=== PATIENT | female | born 1960 | race Caucasian/White ===

== ENCOUNTER 2018-02-14 07:55 | Inpatient (IN) | payer OTHER ==
[~2018-02-14] VITALS: Ht 162.6 cm; Wt 52.9 kg
[~2018-02-14 07:55] MED LIST: ACET325UDC PO; ACETAMINOPHEN500 MG PO; ALBU3IS INH; ALBU90OI61 INH; ALPR.5; ALPR1 PO; AMIO200 PO; AMIT10 PO; AMLO10 PO; ASPI325EC PO; BACL10 PO; BUDE10.22; BUDE10.22 INH; BUME1 PO; BUME2 PO; CARV3.125 PO; CYCL10 PO; Coumadin2 MG PO; DIGO.25 PO; DIGOX250 MCG PO; DIPATR PO; GABA100 PO; HYDHCL25 PO; HYDR-86; HYDR1TAB94 PO; Isosorbide Mono30 MG PO; LIDO5TP TOP; LISI5 PO; MELO7.5 PO; METO50 PO; NYST100P TOP; OMEP20ER PO; OXYC5 PO; PAIN RELIEVER1 EACH PO; POTCHL20ER PO; SERT25 PO; SPIR25 PO; TRAZ100 PO; WARF4 PO
[2018-02-14 08:27] LABS: BASOPHILS ABSOLUTE AUTO 0.03 K/mm3 (0.00-0.23); BASOPHILS PERCENT AUTO 0 % (0-2); EOSINOPHILS ABSOLUTE AUTO 0.02 K/mm3 (0.00-0.68); EOSINOPHILS PERCENT AUTO 0 % (0-6); Hematocrit 33.2 % (33.0-51.0); Hemoglobin 10.8 g/dL (11.5-16.0); IMMATURE GRAN ABSOLUTE AUTO 0.06 K/mm3 (0.00-0.10); IMMATURE GRAN PERCENT AUTO 1 % (0-1); LYMPHOCYTES ABSOLUTE AUTO 1.96 K/mm3 (0.84-5.20); LYMPHOCYTES PERCENT AUTO 20 % (21-46); MONOCYTES ABSOLUTE AUTO 0.39 K/mm3 (0.16-1.47); MONOCYTES PERCENT AUTO 4 % (4-13); Mean Corpuscular HGB 34.5 pg (26.0-34.0); Mean Corpuscular HGB Conc 32.5 g/dL (31.5-36.5); Mean Corpuscular Volume 106 fL (80-100); Mean Platelet Volume 11.8 fL (9.1-12.4); NEUTROPHILS PERCENT AUTO 75 % (41-73); Platelet Count 116 K/mm3 (150-400); RDW Standard Deviation 53.9 fL (35.1-46.3); Red Blood Cell Count 3.13 M/mm3 (3.80-5.20); White Blood Cell Count 9.76 K/mm3 (4.00-11.30)
[2018-02-14 08:40] LABS: Alanine Aminotransfer (ALT/SGP 60 U/L (12-78); Albumin/Globulin Ratio 1.2 (0.8-1.8); Alk Phos 69 U/L (50-136); Anion Gap 11 mmol/L (6-16); Aspartate Aminotrans (AST/SGOT 43 U/L (12-37); Bilirubin, Total 1.2 mg/dL (0.1-1.0); Blood Urea Nitrogen 18 mg/dL (8-24); Bun/Creatinine Ratio 19.9 (12.0-20.0); CO2, Blood 16 mmol/L (21-32); Calcium, Blood 7.7 mg/dL (8.5-10.1); Chloride, Blood 111 mmol/L (98-108); Creatinine, Blood 0.91 mg/dL (0.40-1.00); Globulin, Blood 2.4 g/dL (2.2-4.0); Glomerular Filtration Rate >60 (60-); Glucose, Blood 95 mg/dL (70-99); Potassium, Blood 4.1 mmol/L (3.5-5.5); Sodium, Blood 138 mmol/L (136-145); Total Protein, Blood 5.4 g/dL (6.4-8.2); Troponin I 0.027 ng/mL (0.000-0.040)
[2018-02-14 08:43] LABS: Base Excess Venous -11.1 mmol/L; PCO2 Venous 34.1 mmHg (38-42); PO2 Venous 47.5 mmHg (38-42); pH Blood Venous 7.27 (7.34-7.37)
[2018-02-14 08:52] LABS: Prothrombin Time Results 94.4 Sec (9.7-11.5)
[2018-02-14 08:57] LABS: International Normalized Ratio 10.47
[2018-02-14 09:47] LABS: Digoxin (Lanoxin) 0.49 ug/mL (0.80-2.00)
[2018-02-14 13:57] LABS: Source, Urine Voided
[2018-02-14 14:02] LABS: Blood, Urine 2+ (Neg); Glucose Qualitative, Urine Neg (Neg); Ketones, Urine 1+ (Neg); Leukocyte Esterase, Urine 1+ (Neg); Nitrite, Urine Neg (Neg); Protein, Urine 3+ (Neg); Specific Gravity, Urine 1.025 (1.003-1.022); Urobilinogen, Urine 2+ (Normal)
[2018-02-14 14:13] LABS: Bilirubin, Urine 1+ (Neg)
[2018-02-14 14:14] LABS: Bacteria Many /hpf; Squamous Epithelial Cells Few /hpf (Few)
[2018-02-14 14:16] LABS: U Amphetamine Screen DETECTED; U Barbituate Screen Not Detected; U Benzodiazapine Screen Not Detected; U Buprenorphine Screen Not Detected; U Cannabinoids Screen DETECTED; U Cocaine Screen Not Detected; U Methadone Screen Not Detected; U Methamphetamine Screen DETECTED; U Opiates Screen Not Detected; U Oxycodone Screen Not Detected; U Phencyclidine Screen Not Detected; U Propoxyphene Screen Not Detected
[2018-02-14 14:18] LABS: Appearance, Urine Clear (Clear); Color, Urine Yellow (P-Yellow)
[2018-02-14 14:40] LABS: Troponin I <0.015 ng/mL (0.000-0.040)
[2018-02-14 15:09] LABS: Magnesium, Blood 1.1 mg/dL (1.6-2.4)
[2018-02-15 06:17] LABS: BASOPHILS ABSOLUTE AUTO 0.03 K/mm3 (0.00-0.23); BASOPHILS PERCENT AUTO 0 % (0-2); EOSINOPHILS PERCENT AUTO 0 % (0-6); Hematocrit 39.1 % (33.0-51.0); Hemoglobin 12.5 g/dL (11.5-16.0); IMMATURE GRAN ABSOLUTE AUTO 0.03 K/mm3 (0.00-0.10); IMMATURE GRAN PERCENT AUTO 0 % (0-1); LYMPHOCYTES ABSOLUTE AUTO 2.29 K/mm3 (0.84-5.20); LYMPHOCYTES PERCENT AUTO 21 % (21-46); MONOCYTES ABSOLUTE AUTO 0.76 K/mm3 (0.16-1.47); MONOCYTES PERCENT AUTO 7 % (4-13); Mean Corpuscular HGB 34.6 pg (26.0-34.0); Mean Corpuscular Volume 108 fL (80-100); Mean Platelet Volume 11.9 fL (9.1-12.4); NEUTROPHILS ABSOLUTE AUTO 8.08 K/mm3 (1.96-9.15); NEUTROPHILS PERCENT AUTO 72 % (41-73); NRBC ABSOLUTE 0.07 K/mm3 (0.00-0.02); NRBC Auto 0.6 /100 WBC (0.0-0.2); Platelet Count 112 K/mm3 (150-400); RDW Standard Deviation 55.4 fL (35.1-46.3); Red Blood Cell Count 3.61 M/mm3 (3.80-5.20); White Blood Cell Count 11.19 K/mm3 (4.00-11.30)
[2018-02-15 06:33] LABS: Albumin, Blood 3.2 g/dL (3.4-5.0); Anion Gap 14 mmol/L (6-16); Blood Urea Nitrogen 21 mg/dL (8-24); Bun/Creatinine Ratio 19.1 (12.0-20.0); CO2, Blood 13 mmol/L (21-32); Chloride, Blood 110 mmol/L (98-108); Glomerular Filtration Rate 54 (60-); Glucose, Blood 102 mg/dL (70-99); Magnesium, Blood 1.4 mg/dL (1.6-2.4); Phosphorus, Blood 3.6 mg/dL (2.5-4.9); Potassium, Blood 4.8 mmol/L (3.5-5.5); Sodium, Blood 137 mmol/L (136-145)
[2018-02-15 06:34] LABS: Prothrombin Time Results 69.1 Sec (9.7-11.5)
[2018-02-15 06:56] LABS: International Normalized Ratio 7.52
[2018-02-16 04:07] LABS: Hematocrit 37.9 % (33.0-51.0); Hemoglobin 12.9 g/dL (11.5-16.0); Mean Platelet Volume 11.4 fL (9.1-12.4); NRBC ABSOLUTE 0.05 K/mm3 (0.00-0.02); NRBC Auto 0.5 /100 WBC (0.0-0.2); Platelet Count 158 K/mm3 (150-400); RDW Coefficient Variation 13.4 % (11.7-14.2); RDW Standard Deviation 48.6 fL (35.1-46.3); Red Blood Cell Count 3.79 M/mm3 (3.80-5.20); White Blood Cell Count 9.28 K/mm3 (4.00-11.30)
[2018-02-16 04:25] LABS: International Normalized Ratio 2.6; Prothrombin Time Results 25.4 Sec (9.7-11.5)
[2018-02-16 04:32] LABS: Mean Corpuscular Volume 100 fL (80-100)
[2018-02-16 04:37] LABS: Bun/Creatinine Ratio 18.3 (12.0-20.0); Calcium, Blood 8.5 mg/dL (8.5-10.1); Creatinine, Blood 1.26 mg/dL (0.40-1.00); Magnesium, Blood 1.6 mg/dL (1.6-2.4); Potassium, Blood 4.4 mmol/L (3.5-5.5)
[2018-02-17 05:34] LABS: Hematocrit 38.7 % (33.0-51.0); Hemoglobin 13.3 g/dL (11.5-16.0); Mean Corpuscular HGB 34.3 pg (26.0-34.0); Mean Corpuscular HGB Conc 34.4 g/dL (31.5-36.5); Mean Corpuscular Volume 100 fL (80-100); Mean Platelet Volume 10.4 fL (9.1-12.4); Platelet Count 167 K/mm3 (150-400); RDW Coefficient Variation 13.6 % (11.7-14.2); RDW Standard Deviation 48.1 fL (35.1-46.3); Red Blood Cell Count 3.88 M/mm3 (3.80-5.20); White Blood Cell Count 9.24 K/mm3 (4.00-11.30)
[2018-02-17 05:47] LABS: International Normalized Ratio 2.31; Prothrombin Time Results 22.7 Sec (9.7-11.5)
[2018-02-17 05:56] LABS: Bun/Creatinine Ratio 19.8 (12.0-20.0); Calcium, Blood 8.5 mg/dL (8.5-10.1); Creatinine, Blood 1.11 mg/dL (0.40-1.00); Magnesium, Blood 1.3 mg/dL (1.6-2.4); Potassium, Blood 4.2 mmol/L (3.5-5.5)
[2018-02-17] MEDS ORDERED: MAGOXI400 PO (14:47)
[2018-02-17] MEDS ORDERED: METO25ER PO (14:48)
[2018-02-17] MEDS ORDERED: TORSE20 PO (14:48)
== END 2018-02-17 15:25 | disposition home or self-care (01) | DRG 308 ==
LOC: ER 07:55 → PCU 10:23
PROVIDERS: Emergency Medicine; Internal Medicine; Pharmacist
DX: I48.91 Unspecified atrial fibrillation (principal); I50.43 Acute on chronic combined systolic (congestive) and diastolic (congestive) heart failure; F19.20 Other psychoactive substance dependence, uncomplicated; D68.9 Coagulation defect, unspecified; K55.9 Vascular disorder of intestine, unspecified; I11.0 Hypertensive heart disease with heart failure; E83.42 Hypomagnesemia; I27.20 Pulmonary hypertension, unspecified; J44.9 Chronic obstructive pulmonary disease, unspecified; Z87.891 Personal history of nicotine dependence; Z95.810 Presence of automatic (implantable) cardiac defibrillator; I42.0 Dilated cardiomyopathy; F15.10 Other stimulant abuse, uncomplicated; I47.1 Supraventricular tachycardia
CPT/HCPCS: 36415; 71045; 80048; 80053; 80069; 80162; 81001; 82803; 83690; 83735; 83880; 84443; 84484; 85025; 85027; 85610; 93005; 93010; 94640; 94760; 96361; 96365; 96366; 96368; 96375; 99285-25; C1751; C8929; C9113; J1160; J2405; J3475; J7030; Q9957

== ENCOUNTER 2019-12-01 11:15 | Emergency (ER) | payer OTHER | END 2019-12-01 14:52 | disposition home or self-care (01) | LOC: ER 11:15 | DX: I48.91 Unspecified atrial fibrillation (principal); Z91.040 Latex allergy status; Z88.8 Allergy status to other drugs, medicaments and biological substances; Z79.01 Long term (current) use of anticoagulants; Z79.899 Other long term (current) drug therapy ==